=== PATIENT | female | born 1950 | race Hispanic/Latino ===

== ENCOUNTER 2017-04-08 07:30 | Day surgery (SDC) | payer MEDICARE, MEDICAID ==
[2017-04-08 08:29] VITALS: BMI 21.5
[2017-04-08] MEDS ORDERED: Lactated Ringer's 500 ML IV ONE ×2 (08:48)
--- NOTE | 2017-04-08 08:54 | CP.SDSHP ---
Same Day Surgery H & P - History Proposed Procedure: Colonoscopy Pre-Op Diagnosis: Ulcerative Colitis surveillance - Previous Medical/Surgical History Cardiac: Hypertension Misc: Other (GERD. Ulcerative Colitis) Previous Surgical History: . BTL - Allergies Allergies: Allergies No Known Allergies Allergy (Verified 04/08/17 08:23) - Current Medications Current Medications: reviewed, per reconciliation - Physical Exam General Appearance: wdwn nad Vital Signs: Vital Signs 04/08/17 08:15 Temperature 97.6 F Pulse Rate 80 Respiratory 20 Rate Blood Pressure 127/67 Mental Status: Alert & Oriented x3 Heart: WNL Lungs: WNL GI: WNL - {Optional Preform as Required} Abdomen: WNL - Impression Impression: Ulcerative Colitis Pt. Evaluated Today:Candidate for Anesthesia & Procedure: Yes - Date & Time Date: 04/08/17 Time: 08:54 Short Stay Discharge - Short Stay Discharge Admitting Diagnosis/Reason for Visit: CONSTIPATION, UNSPECIFIED Disposition: HOME/ ROUTINE
[2017-04-08] MEDS ORDERED: Propofol 10 mg/ml Inj (20 ML) ONE (08:56)
[2017-04-08 10:38] VITALS: BP 137/63; PULSE 54; RESP 18; TEMP 97; O2SAT 100
== END 2017-04-08 10:23 | disposition home or self-care (01) ==
LOC: C.ENDO 07:30
PROVIDERS: ATTEND Internal Medicine Gastroenterology
DX: Z12.11 Encounter for screening for malignant neoplasm of colon (principal); K51.90 Ulcerative colitis, unspecified, without complications; K64.0 First degree hemorrhoids
CPT/HCPCS: G0105; J2001; J2704; J7120